=== PATIENT | male | born 1960 | race Caucasian/White ===

== ENCOUNTER 2021-08-19 11:42 | Emergency (ER) | payer OTHER ==
--- NOTE | 2021-08-19 12:46 | EDM.PDOC ---
ED HPI GENERAL MEDICAL PROBLEM - General Chief Complaint: Neurological Problem Stated Complaint: MAYTE AMB Time Seen by Provider: 08/19/21 12:15 Source of Information: Reports: Patient, RN Notes Reviewed History Limitations: Reports: No Limitations - History of Present Illness INITIAL COMMENTS - FREE TEXT/NARRATIVE: Patient is a 60-year-old male who is brought into the ER via [facility]. States that he is on a road trip to [facility] from [place]. States that this morning he felt "some brain fog" or just not quite right. He was diagnosed with diabetes last year, and has been taking meds for about that long. States that he typically waits till about noon to take his medications due to not wanting to drop his blood sugars in the morning. He was not having any sort of chest pain, cough/shortness of breath, he states he felt flushed but did not have a fever. When the ambulance got to him, his blood sugar was in the 80s. Upon triage his blood sugar is 105, and he seems to be feeling a little bit better but was still worried that he could have caused the rec not feeling right so he come to the ER for evaluation for possible dehydration or otherwise. States that he is not eaten, so he is somewhat hungry and would like to eat at this time to see if this helps relieve some of his symptoms. States that he ate "junk food all day yesterday" this would include hot dogs, chips, fast food restaurant, a few beers last night at supper, and then he had a good meal last night. States he feels fine otherwise. He has been vaccinated for COVID-19. - Related Data Allergies Allergy/AdvReac Type Severity Reaction Status Date / Time No Known Allergies Allergy Verified 08/19/21 11:48 Home Meds: Home Meds Pioglitazone [Actos] 30 mg PO DAILY 08/19/21 [History] Rosuvastatin [Crestor] 20 mg PO DAILY 08/19/21 [History] metFORMIN [Glucophage XR] 500 mg PO TID 08/19/21 [History] Past Medical History Cardiovascular History: Reports: High Cholesterol Endocrine/Metabolic History: Reports: Diabetes, Type II Dermatologic History: Reports: Other (See Below) Other Dermatologic History: skin cancer Social & Family History - Tobacco Use Tobacco Use Status *Q: Current Every Day Tobacco User Years of Tobacco use: 30 Packs/Tins Daily: 1 - Caffeine Use Caffeine Use: Reports: Coffee - Alcohol Use Days Per Week of Alcohol Use: 2 Number of Drinks Per Day: 2 Total Drinks Per Week: 4 - Recreational Drug Use Recreational Drug Use: Yes Recreational Drug Type: Reports: Marijuana/Hashish ED ROS GENERAL - Review of Systems Review Of Systems: Comprehensive ROS is negative, except as noted in HPI. ED EXAM, GENERAL - Physical Exam Exam: See Below Exam Limited By: No Limitations General Appearance: Alert, WD/WN, No Apparent Distress Respiratory/Chest: No Respiratory Distress, Lungs Clear, Normal Breath Sounds, No Accessory Muscle Use, Chest Non-Tender Cardiovascular: Normal Peripheral Pulses, Regular Rate, Rhythm, No Edema Peripheral Pulses: 2+: Radial (L), Radial (R) GI/Abdominal: Normal Bowel Sounds, Soft, Non-Tender, No Distention, No Mass Extremities: Normal Inspection, Normal Capillary Refill Neurological: Alert, Oriented, Normal Cognition, No Motor/Sensory Deficits Psychiatric: Normal Affect, Normal Mood Skin Exam: Warm, Dry, Intact, Normal Color, No Rash Course - Vital Signs Last Recorded V/S: Last Vital Signs Temp 97.5 F 08/19/21 11:46 Pulse 87 08/19/21 11:46 Resp 20 08/19/21 11:46 BP 137/94 H 08/19/21 11:46 Pulse Ox 96 08/19/21 11:46 - Orders/Labs/Meds Orders: Active Orders 24 hr Category Date Time Status POC Glucose [Blood Glucose Check, Bedside] [RC] ONETIME Care 08/19/21 11:49 Active Labs: Laboratory Tests 08/19/21 08/19/21 08/19/21 Range/Units 11:55 11:58 12:55 WBC 10.75 H (4.23-9.07) K/mm3 RBC 5.36 (4.63-6.08) M/mm3 Hgb 15.0 (13.7-17.5) gm/dl Hct 46.2 (40.1-51.0) % MCV 86.2 (79.0-92.2) fl MCH 28.0 (25.7-32.2) pg MCHC 32.5 (32.2-35.5) g/dl RDW Std Deviation 43.2 (35.1-43.9) fL Plt Count 166 (163-337) K/mm3 MPV 11.2 (9.4-12.3) fl Neut % (Auto) 78.4 H (34.0-67.9) % Lymph % (Auto) 14.3 L (21.8-53.1) % Cuming % (Auto) 5.6 (5.3-12.2) % Eos % (Auto) 1.2 (0.8-7.0) Baso % (Auto) 0.3 (0.1-1.2) % Neut # (Auto) 8.43 H (1.78-5.38) K/mm3 Lymph # (Auto) 1.54 (1.32-3.57) K/mm3 Cuming # (Auto) 0.60 (0.30-0.82) K/mm3 Eos # (Auto) 0.13 (0.04-0.54) K/mm3 Baso # (Auto) 0.03 (0.01-0.08) K/mm3 Sodium (136-145) mEq/L Potassium (3.5-5.1) mEq/L Chloride (98-107) mEq/L Carbon Dioxide (21-32) mEq/L Anion Gap (5-15) BUN (7-18) mg/dL Creatinine (0.7-1.3) mg/dL Est Cr Clr Drug Dosing mL/min Estimated GFR (MDRD) (>60) mL/min BUN/Creatinine Ratio (14-18) Glucose (70-99) mg/dL POC Glucose 105 H (70-99) mg/dL Calcium (8.5-10.1) mg/dL Total Bilirubin (0.2-1.0) mg/dL AST (15-37) U/L ALT (16-63) U/L Alkaline Phosphatase (46-116) U/L Total Protein (6.4-8.2) g/dl Albumin (3.4-5.0) g/dl Globulin gm/dL Albumin/Globulin Ratio (1-2) SARS-CoV-2 RNA (SATISH) Negative (NEGATIVE) 08/19/21 Range/Units 12:55 WBC (4.23-9.07) K/mm3 RBC (4.63-6.08) M/mm3 Hgb (13.7-17.5) gm/dl Hct (40.1-51.0) % MCV (79.0-92.2) fl MCH (25.7-32.2) pg MCHC (32.2-35.5) g/dl RDW Std Deviation (35.1-43.9) fL Plt Count (163-337) K/mm3 MPV (9.4-12.3) fl Neut % (Auto) (34.0-67.9) % Lymph % (Auto) (21.8-53.1) % Cuming % (Auto) (5.3-12.2) % Eos % (Auto) (0.8-7.0) Baso % (Auto) (0.1-1.2) % Neut # (Auto) (1.78-5.38) K/mm3 Lymph # (Auto) (1.32-3.57) K/mm3 Cuming # (Auto) (0.30-0.82) K/mm3 Eos # (Auto) (0.04-0.54) K/mm3 Baso # (Auto) (0.01-0.08) K/mm3 Sodium 142 (136-145) mEq/L Potassium 4.0 (3.5-5.1) mEq/L Chloride 105 (98-107) mEq/L Carbon Dioxide 30 (21-32) mEq/L Anion Gap 11.0 (5-15) BUN 12 (7-18) mg/dL Creatinine 1.0 (0.7-1.3) mg/dL Est Cr Clr Drug Dosing 87.30 mL/min Estimated GFR (MDRD) > 60 (>60) mL/min BUN/Creatinine Ratio 12.0 L (14-18) Glucose 133 H (70-99) mg/dL POC Glucose (70-99) mg/dL Calcium 8.9 (8.5-10.1) mg/dL Total Bilirubin 1.1 H (0.2-1.0) mg/dL AST 19 (15-37) U/L ALT 28 (16-63) U/L Alkaline Phosphatase 44 L (46-116) U/L Total Protein 7.6 (6.4-8.2) g/dl Albumin 3.9 (3.4-5.0) g/dl Globulin 3.7 gm/dL Albumin/Globulin Ratio 1.1 (1-2) SARS-CoV-2 RNA (SATISH) (NEGATIVE) - Re-Assessments/Exams Free Text/Narrative Re-Assessment/Exam: 08/19/21 12:47 Patient presents to the ER for evaluation of just not feeling quite right. A Covid swab was obtained at time of triage, get some basic labs, patient's blood sugar was back up to normal or within normal range after being in the ER. We will go ahead and give him a meal along with something to drink to see if this also helps and hopefully discharge him home with general recommendations. 08/19/21 13:42 Patient labs have resulted, and are essentially unremarkable. Covid screen was negative. Patient is eating his meal at this time, so we will see how he feels after his meal, and hopefully discharge home with conservative recommendations. Departure - Departure Time of Disposition: 13:57 Disposition: Home, Self-Care 01 Condition: Good Clinical Impression: Hypoglycemia - Discharge Information *PRESCRIPTION DRUG MONITORING PROGRAM REVIEWED*: No *COPY OF PRESCRIPTION DRUG MONITORING REPORT IN PATIENT DEENA: No Instructions: Preventing Hypoglycemia Forms: ED Department Discharge Additional Instructions: You were evaluated in the ER today for your generalized symptoms of feeling unwell. Laboratory evaluation at today's visit is all unremarkable, your blood sugar was within normal limits when you were at the ER. And your COVID-19 screen was negative. No definitive answers are apparent as to what would have caused these generalized feelings of being unwell, but rest assured everything does look good. I would recommend that you increase oral fluid hydration the best you can, and eat several smaller meals throughout the day instead of waiting until around noon to eat, to see if this helps relieve some of the symptoms. Please continue all the medications as previously prescribed by your regular care provider. Do not hesitate to return to the ER at any time if symptoms change or worsen. Sepsis Event Note (ED) - Focused Exam Vital Signs: Vital Signs Temp Pulse Resp BP Pulse Ox 08/19/21 11:46 97.5 F 87 20 137/94 H 96 - My Orders Last 24 Hours: My Active Orders 08/19/21 11:49 POC Glucose [Blood Glucose Check, Bedside] [RC] ONETIME - Assessment/Plan Last 24 Hours: My Active Orders 08/19/21 11:49 POC Glucose [Blood Glucose Check, Bedside] [RC] ONETIME
== END 2021-08-19 14:40 | disposition home or self-care (01) ==
LOC: JD.ED 11:42
DX: E11.649 Type 2 diabetes mellitus with hypoglycemia without coma (principal); E78.00 Pure hypercholesterolemia, unspecified; Z79.84 Long term (current) use of oral hypoglycemic drugs; Z79.899 Other long term (current) drug therapy; Z72.0 Tobacco use; Z20.822 Contact with and (suspected) exposure to COVID-19
CPT/HCPCS: 36415; 80053; 82947; 85025; 99284; U0002